=== PATIENT | male | born 1985 | race Caucasian/White ===

== ENCOUNTER 2020-11-11 06:49 | Emergency (ER) | payer BC ==
[~2020-11-11] VITALS: Ht 170.2 cm; Wt 94.3 kg
[2020-11-11 07:15] VITALS: BP_SYST 138
[2020-11-11] MEDS ORDERED: DOXYCYCLINE HYCLATE 100 MG CAPSULE PO ONE (07:45)
[2020-11-11] MEDS ORDERED: DOXY100C PO (08:05)
[2020-11-11] MEDS ORDERED: AZITHROMYCIN 250 MG TABLET ONE (08:12)
[2020-11-11] MEDS ORDERED: AZITHROMYCIN 250 MG TABLET PO ONE (08:15)
[2020-11-11 08:19] VITALS: BP_SYST 127
[2020-11-11 08:30] LABS: BILIRUBIN,URINE NEGATIVE (NEGATIVE); BLOOD, URINE NEGATIVE (NEGATIVE); CLARITY/URINE CLEAR (CLEAR); COLOR,URINE YELLOW (YELLOW); GLUCOSE,URINE NEGATIVE (NEGATIVE); KETONES,URINE NEGATIVE (NEGATIVE); LEUKOCYTE ESTERASE ,URINE NEGATIVE (NEGATIVE); NITRITE, URINE NEGATIVE (NEGATIVE); PH,URINE 5.5 (5.0-8.0); PROTEIN URINE NEGATIVE (NEGATIVE); UROBILINOGEN,URINE 0.2 (0.2-1.0)
[2020-11-14 09:06] LABS: CHLAMYDIA TRACHOMATIS NAA Negative (Negative); NEISSERIA GONORRHOEAE NAA Negative (Negative)
== END 2020-11-11 08:19 | disposition home or self-care (01) ==
LOC: SED 06:49
DX: R10.2 Pelvic and perineal pain (principal)
CPT/HCPCS: 81003; 87491; 87591; 99283; Q0144